=== PATIENT | female | born 1990 | race African-American/Black ===

== ENCOUNTER 2017-04-23 17:42 | Emergency (ER) | payer SELFPAY ==
[~2017-04-23] VITALS: Ht 170.2 cm; Wt 72.5 kg
[2017-04-23 17:50] VITALS: Ht 170.2 cm; Wt 72.5 kg
[2017-04-23] MEDS ORDERED: ACETAMINOPHEN 500 MG TAB PO STA (18:36)
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
--- NOTE | 2017-04-23 19:45 | RADRPT ---
PROCEDURE: Chest x-ray CLINICAL INDICATION: Rib pain TECHNIQUE: Chest single view COMPARISON: None FINDINGS: The heart is normal in size. The pulmonary vessels are normal in caliber. The lungs are clear. Th e costophrenic angles are sharp. The visualized bony thorax is unremarkable. No obvious rib fractur es seen IMPRESSION: No acute cardiopulmonary disease. No evidence of pneumothorax RPTAT: HH .Jose Luis Schafer MD, MD Date Time Electronically viewed and signed by .Jose Luis Schafer MD, on 04/23/2017 19:44 .W/
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
[2017-04-23] MEDS ORDERED: KETOROLAC 30 MG INJ IM STA (20:17)
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
[2017-04-23] MEDS ORDERED: IBUP400T22 PO (20:53)
[2017-04-23] MEDS ORDERED: HYDR-906 PO (20:53)
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
== END 2017-04-23 20:54 | disposition home or self-care (01) ==
LOC: FTE 17:42
DX: S39.92XA Unspecified injury of lower back, initial encounter (principal); S69.92XA Unspecified injury of left wrist, hand and finger(s), initial encounter; S19.9XXA Unspecified injury of neck, initial encounter; R51 Headache; R07.81 Pleurodynia; Y04.2XXA Assault by strike against or bumped into by another person, initial encounter
CPT/HCPCS: 70450; 70486; 71010; 72100; 72125; 73130; 96372; 99285; J1885

== ENCOUNTER 2018-08-15 06:58 | Emergency (ER) | END 2018-08-15 09:04 | disposition home or self-care (01) ==